=== PATIENT | male | born 1985 | race Caucasian/White ===

== ENCOUNTER 2019-08-21 19:15 | Emergency (ER) | payer OTHER ==
[~2019-08-21] VITALS: Ht 182.9 cm; Wt 99.8 kg
[2019-08-21 19:25] VITALS: BP_SYST 139
--- NOTE | 2019-08-21 19:30 | NUR ---
Patient to ER bed 3 to gown for evaluation. Side rails up. Report given to Suzette DESIR.
--- NOTE | 2019-08-21 19:59 | NUR ---
ER Dr. Persaud at bedside examining patient.
--- NOTE | 2019-08-21 19:59 | NUR ---
Pt presents to ER with requests of checking labs. Pt A&Ox4. Pt states he fell off a eron a week ago and was taken to [facility] for care. Pt states he was at Urgent Care today getting his nicola out and complained of dizziness and body aches. Pt states the people at Urgent Care told him to come to ER to get his labs checked. Pt states he is currently in no pain. Upon assessment, pt has multiple scabs all over legs and red discoloration around his right shoulder. Will continue to monitor.
--- NOTE | 2019-08-21 20:14 | NUR ---
Radiology at bedside.
[2019-08-21 20:36] LABS: BASOPHILS % (AUTO) 0.4 % (0.0-2.0); EOSINOPHILS # (AUTO) 0.2 K/uL (0.0-0.4); EOSINOPHILS % (AUTO) 1.3 % (0.0-4.0); HEMATOCRIT 38.4 % (36-54); HEMOGLOBIN 13.6 g/dL (14.0-18.0); LYMPHOCYTES # (AUTO) 1.4 K/uL (1.0-5.5); MEAN CORPUSCULAR HEMOGLOBIN 33 pg (27-31); MEAN CORPUSCULAR HGB CONC 36 % (32-36); MEAN CORPUSCULAR VOLUME 92 fL (79.0-98.0); MONOCYTES # (AUTO) 0.5 K/uL (0.0-1.0); MONOCYTES % (AUTO) 4.2 % (1.7-9.3); NEUTROPHILS # (AUTO) 9.8 K/uL (1.8-7.7); NEUTROPHILS % (AUTO) 82.1 % (40.0-70.0); PLATELET COUNT (AUTO) 317 K/uL (130-430); RED BLOOD CELL COUNT(AUTO) 4.16 MIL/uL (4.2-6.2); RED CELL DISTRIBUTION WIDTH 12.7 % (9.0-15.0)
[2019-08-21 20:45] LABS: CREATININE 1.37 mg/dL (0.55-1.30); POTASSIUM 4.2 mmol/L (3.5-5.1)
[2019-08-21 20:52] LABS: ALBUMIN 3.5 g/dL (3.4-4.8); TOTAL BILIRUBIN 0.5 mg/dL (0.0-1.0)
--- NOTE | 2019-08-21 21:50 | NUR ---
Pt laying in bed talking with mother at bedside. Pt has no complaints. Will continue to monitor.
[2019-08-22] MEDS ORDERED: HYDROcodone/ACETAMIN 5-325 MG TAB (NORCO/ VICODIN) PO ONE
[2019-08-22 00:20] VITALS: BP_SYST 130
--- NOTE | 2019-08-22 00:20 | NUR ---
Patient given written and verbal discharge instructions and verbalizes understanding. ER MD discussed with patient the results and treatment provided. Patient in stable condition. ID arm band removed. Rx of [place] given. Patient educated on pain management and to follow up with PMD. Pain Scale 3. MD aware, pain medication given here and prescription home. Opportunity for questions provided and answered. Medication side effect fact sheet provided.
== END 2019-08-22 00:20 | disposition home or self-care (01) ==
LOC: SED 19:15
DX: S40.011A Contusion of right shoulder, initial encounter (principal); R53.1 Weakness; W15.XXXA Fall from cliff, initial encounter; Y93.89 Activity, other specified; Y92.89 Other specified places as the place of occurrence of the external cause; Y99.8 Other external cause status
CPT/HCPCS: 36415; 72128; 72131; 73030; 80053; 82550-TC; 85025; 99284

== ENCOUNTER 2021-08-10 12:58 | Emergency (ER) | payer MEDICAID, OTHER ==
[~2021-08-10] VITALS: Ht 182.9 cm; Wt 99.8 kg
--- NOTE | 2021-08-10 13:08 | NUR ---
Patient to ER bed 04 to gown for evaluation. Side rails up.
[2021-08-10 13:10] VITALS: BP_SYST 130
--- NOTE | 2021-08-10 13:10 | NUR ---
ER at bedside examining patient.
--- NOTE | 2021-08-10 13:10 | NUR ---
Pt. dropped off by mom, he has large raised sore to right FA about 1.5 X 1.5 inches and appears to be filled with puss, states its 10/10 pain and has hardened area to left AC, pt. admits to IV drug use and thinks drugs were "bad", shot up 5 days ago and the sores appeared, afebrile, pulse 111.
[2021-08-10] MEDS ORDERED: BACITRACIN 1 GM OINT TP ONE (13:15)
[2021-08-10] MEDS ORDERED: LIDOCAINE 1% 10 MG/ML, 20 ML MDV INJ ONE (13:15)
[2021-08-10] MEDS ORDERED: DIPH-TET-PERTUS Vaccine 0.5 ML VIAL (ADACEL) I.M. ONE (13:15)
--- NOTE | 2021-08-10 13:25 | NUR ---
Dr. Santiago numbed sore to right FA and attempted to drain, minimal puss expelled, packing used, tolerated well
[2021-08-10] MEDS ORDERED: CLIN-22 PO (13:31)
[2021-08-10] MEDS ORDERED: IBUP-1971 PO (13:31)
[2021-08-10] MEDS ORDERED: CLINDAMYCIN HCL 150 MG CAPSULE PO ONE (13:45)
[2021-08-10] MEDS ORDERED: ALPR0.5T PO (13:54)
--- NOTE | 2021-08-10 13:55 | NUR ---
bacitracin applied with a non adherent pad and wrapped in gauze
[2021-08-10 14:04] VITALS: BP_SYST 134
--- NOTE | 2021-08-10 14:05 | NUR ---
Patient given written and verbal discharge instructions and verbalizes understanding. Dr. Santiago discussed with patient the results and treatment provided. Patient in stable condition. ID arm band removed. Rx of Clindamycin, Motrin, and Xanax given. Patient educated on pain management and to follow up here saturday to check wound and remove packing. Pain Scale 7. Opportunity for questions provided and answered. Medication side effect fact sheet provided.
== END 2021-08-10 14:05 | disposition home or self-care (01) ==
LOC: SED 12:58
DX: L02.414 Cutaneous abscess of left upper limb (principal); Z79.899 Other long term (current) drug therapy
CPT/HCPCS: 90715; 99283

== ENCOUNTER 2021-08-13 14:46 | Emergency (ER) | payer MEDICAID ==
[~2021-08-13] VITALS: Ht 182.9 cm; Wt 99.8 kg
[~2021-08-13 14:46] MED LIST: ALPR0.5T PO; CLIN-22 PO; IBUP-1971 PO
--- NOTE | 2021-08-13 14:46 | NUR ---
[facility] Side rails up. Report given to KARLEE THOMAS. Addendum: 08/13/21 at 1522 by [email or web address] Patient to ER bed 5 to [facility] for evaluation. Side rails up. Report given to KARLEE AYON.
[2021-08-13 14:50] VITALS: BP_SYST 134
--- NOTE | 2021-08-13 14:50 | NUR ---
ER at bedside examining patient.
--- NOTE | 2021-08-13 14:50 | NUR ---
Pt. came in for a wound recheck, wound to right FA, Dr. Santiago at bedside, I removed dressing and Dr. Santiago removed packing, wound has tunneling, reddness and pain 05/19, pt. also has wound to left AC, compared to area more raised, red and swollen, no opening of skin, pt. states just as painful as wound to right side
--- NOTE | 2021-08-13 14:50 | NUR ---
pt. appears to be intoxicated, speech slurred, and has a drunken gait, pt. admits to drinking Vodka today, denies use of illegal drugs today
--- NOTE | 2021-08-13 15:07 | NUR ---
lab here for blood draw
[2021-08-13 15:18] LABS: BASOPHILS # (AUTO) 0.1 K/uL (0.0-0.2); BASOPHILS % (AUTO) 0.9 % (0.0-2.0); EOSINOPHILS # (AUTO) 0.1 K/uL (0.0-0.4); EOSINOPHILS % (AUTO) 0.9 % (0.0-4.0); HEMOGLOBIN 14.1 g/dL (14.0-18.0); LYMPHOCYTES # (AUTO) 2.9 K/uL (1.0-5.5); LYMPHOCYTES % (AUTO) 32.4 % (20.5-51.5); MEAN CORPUSCULAR HEMOGLOBIN 31 pg (27-31); MEAN CORPUSCULAR HGB CONC 34 % (32-36); MEAN CORPUSCULAR VOLUME 90 fL (79.0-98.0); MONOCYTES # (AUTO) 0.7 K/uL (0.0-1.0); MONOCYTES % (AUTO) 7.6 % (1.7-9.3); NEUTROPHILS # (AUTO) 5.2 K/uL (1.8-7.7); NEUTROPHILS % (AUTO) 58.2 % (40.0-70.0); PLATELET COUNT (AUTO) 457 K/uL (130-430); RED BLOOD CELL COUNT(AUTO) 4.58 MIL/uL (4.2-6.2); RED CELL DISTRIBUTION WIDTH 13.1 % (9.0-15.0); WHITE BLOOD COUNT (AUTO) 8.9 K/uL (4.8-10.8)
[2021-08-13 15:37] LABS: CALCIUM 8.8 mg/dL (8.4-11.0); CREATININE 0.95 mg/dL (0.55-1.30)
[2021-08-13 15:42] LABS: ALBUMIN 3.4 g/dL (3.4-4.8); TOTAL BILIRUBIN 0.2 mg/dL (0.0-1.0)
[2021-08-13 16:13] LABS: PROTHROMBIN TIME 10.4 SECS (9.5-12.5)
[2021-08-13 16:20] LABS: C-REACTIVE PROTEIN QUANT 0.7 mg/dL (0-0.5)
--- NOTE | 2021-08-13 17:12 | NUR ---
PATIENT RESTING IN NO DISTRESS AT THIS TIME. ASSUMING CARE
[2021-08-13] MEDS ORDERED: BACITRACIN 1 GM OINT TP ONE (18:01)
[2021-08-13] MEDS: BACITRACIN 1 GM OINT TP ONE (18:13)
--- NOTE | 2021-08-13 18:13 | NUR ---
OBTAINED DC SIGNATURE. REVIEWED DC INSTRUCTIONS WITH PATIENTS. ALL BELONGINGS WITH PATIENT. NO IV TO DC. DRESSED WOUND WITH BACITRACIN PER MD DE ANDA. TOLERATED WELL BY PATIENT.
--- NOTE | 2021-08-13 18:13 | NUR ---
Patient given written and verbal discharge instructions and verbalizes understanding. ER MD DE ANDA discussed with patient the results and treatment provided. Patient in stable condition. ID arm band removed. Patient educated on pain management and to follow up with PMD. Pain Scale 0/10. Opportunity for questions provided and answered.
[2021-08-13 18:17] VITALS: BP_SYST 118
== END 2021-08-13 18:17 | disposition home or self-care (01) ==
LOC: SED 14:46
DX: L02.413 Cutaneous abscess of right upper limb (principal); Z79.899 Other long term (current) drug therapy
CPT/HCPCS: 36415; 80053; 83605; 85025; 85610; 85730; 86140; 99283; G0482

== ENCOUNTER 2021-08-20 21:56 | Emergency (ER) | payer MEDICAID ==
[~2021-08-20] VITALS: Ht 182.9 cm; Wt 99.8 kg
[2021-08-20 22:42] VITALS: BP_SYST 126
--- NOTE | 2021-08-20 23:55 | NUR ---
Patient called, no answer. Patient left without being seen. No further treatment provided. ER MD aware
== END 2021-08-20 23:55 | disposition left against medical advice (07) ==
LOC: SED 21:56
DX: Z48.00 Encounter for change or removal of nonsurgical wound dressing (principal); Z53.21 Procedure and treatment not carried out due to patient leaving prior to being seen by health care provider